=== PATIENT | female | born 2000 | race Caucasian/White ===

== ENCOUNTER 2024-02-28 14:44 | Inpatient (IN) ==
--- NOTE | 2024-02-28 15:24 | History & Physical Report ---
Date of Service February 28, 2024 Assessment & Plan (1) Normal labor and delivery: Plan: G1 at 38w5d with GDM with GBS+ve status came in Active Phase of labor. Issues: 1. GBS +ve: needs PCN in Labor 2. GDM: Diet Controlled FHT: Category 1 Tracing Contractions: Adequate Menses Irregular: POG as per 8+5 WOG 38+2 WOG BG: A+ve Plan: Spontaneous progress of labor Talked about Epidural; She opts for this (2) Gestational diabetes mellitus (GDM) affecting , antepartum: Plan: Diet Controlled GRBS as per protocol History of Present Illness Chief Complaint: G1 at 38w5d with GDM with GBS+ve status here for labor check Primary Care Provider: [facility] 24 yrs G1 at 38w5d with GDM with GBS+ve status here for labor check. Contraction started at 9 am this morning Issues: 1. GBS +ve: needs PCN in Labor 2. GDM: Diet Controlled Menses Irregular: POG as per 8+5 WOG 38+2 WOG BG: A+ve Recent USG(02/18): EFW 85%( Both parent were Large babies at ) Initially planned for IOL after 39 weeks Came in labor; Contraction frequency: Vitals: BP 150/72 mmHg----- repeat BP 115/78 Talked about Epidural Allergies Allergy/AdvReac Type Severity Reaction Status Date / Time No Known Allergies Allergy Verified 02/28/24 15:00 Home Medications Medication Instructions Recorded Confirmed Type 21-iron fu-folic acid 1 tab PO DAILY 07/24/23 02/28/24 History [ Complete] acetone (urine) test (Ketone Urine #50 ea 01/08/24 02/26/24 Rx Test strips) blood sugar diagnostic (OneTouch #150 ea 01/08/24 02/26/24 Rx Verio test strips) blood-glucose meter (OneTouch #1 ea 01/08/24 02/26/24 Rx Verio Reflect Meter) lancets 33 gauge (OneTouch Delica #150 ea 01/08/24 02/26/24 Rx Plus Lancet) ferrous sulfate 325 mg (65 mg 325 mg PO DAILY 02/28/24 02/28/24 History iron) tablet (iron) Patient History Medical History (Updated 02/28/24 @ 15:51 by Karen Artis MD) GBS carrier Gestational diabetes mellitus diet controlled Varicella vaccination Surgical History S/P wisdom tooth extraction Family History Grandmother (Maternal) Breast cancer Grandfather (Paternal) Colorectal cancer Father Hypertension Thyroid disease Denies family history of Ovarian cancer Social History Smoking Status: Never smoker Do You Dip or Chew Tobacco: No; Hx Alcohol Use: No Hx Substance Use: No Preferred Language: Ken[place] Self Storage Manager Required: No Beliefs That Will Affect Care: None marital status: marital status details: Basilio Venegas (26) [phone] Current Living Situation: Spouse Current Living Situation Comment: lives with spouse, no pets current occupational status: employed 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 Denies SOB, difficulty breathing, chest pain, palpitations, and chest pressure. Denies breast pain. Denies dysuria. Denies headache or changes in vision. Physical Exam Physical Exam: General: Alert and oriented. No acute distress CV: Regular rate and rhythm. No murmurs. Respiratory: CTA bilaterally. No rhonchi, wheezes, or crackles. No increased work of breathing. Abdomen: Gravid term size Uterus, Longitudinal Lie, Cephalic, Contraction + Pelvic: Dilated 8 cm; Effacement 100; Station [address] Gr Lower extremities: No LE edema. No deep calf pain. Results & Data Vital Signs (Past 12 Hours) Vital Signs Temp Pulse Resp BP Pulse Ox 02/28/24 15:14 80 100 02/28/24 15:13 75 150/72 H 02/28/24 15:09 89 99 02/28/24 14:58 90 150/79 H 02/28/24 14:58 37.0 C 18
[2024-02-28] MEDS ORDERED: LIDOCAINE 1% LOCAL 20 ML VIAL INFIL PRN (15:50)
[2024-02-28] MEDS ORDERED: OXYTOCIN 30 UNITS/NSS 30 UNITS/500 ML BAG IV PRN (15:50)
--- NOTE | 2024-02-28 15:53 | Labor Progress Brief Note ---
Date of Service February 28, 2024 Subjective at 38w5d with contractions Q4-7, no ROM/VB, good FM. GDM, GBS+. Assessment & Plan (1) Normal labor and delivery: Physical Exam Genitourinary: 8/100/0 FHT Cat 1 pattern BUT at times baseline as low as 100. This has been a previously seen issue with this fetus on office NST's. +accel with exam and variability always moderate. [place] Q7 Results & Data Vital Signs (Past 12 Hours) Vital Signs Temp Pulse Resp BP Pulse Ox 02/28/24 15:50 98 H 86 L 02/28/24 15:49 94 H 100 02/28/24 15:44 100 02/28/24 15:44 77 02/28/24 15:44 69 115/78 02/28/24 15:39 92 H 100 02/28/24 15:34 99 02/28/24 15:34 79 02/28/24 15:34 77 93 02/28/24 15:29 100 02/28/24 15:29 85 02/28/24 15:29 74 154/73 H 02/28/24 15:24 83 98 02/28/24 15:19 85 99 02/28/24 15:14 80 100 02/28/24 15:13 75 150/72 H 02/28/24 15:09 89 99 02/28/24 14:58 90 150/79 H 02/28/24 14:58 98.6 F 18 Coding Level of Care Code None Diagnoses Normal labor and delivery O80
[2024-02-28] MEDS: LACTATED RINGER'S 1,000 ML IV PRN (15:55)
[2024-02-28 16:10] LABS: Hematocrit (blood only) 35.4 % (37.0-47.0); Hemoglobin 11.8 g/dl (12.0-16.0); Mean Corpuscular Hemoglobin 28.9 pg (25.0-34.0); Mean Corpuscular Hgb Conc 33.3 g/dL (32.0-36.0); Mean Corpuscular Volume 86.8 fL (80.0-100.0); Mean Platelet Volume 9.6 fL (9.4-12.4); Platelet Count 197 K/uL (130-400); RDW Coefficient of Variation 13.4 % (11.5-14.5); RDW Standard Deviation 42.1 fL (36.4-46.3); Red Blood Count 4.08 M/uL (4.20-5.40); White Blood Count 12.57 K/ul (4.8-10.8)
[2024-02-28] MEDS ORDERED: fentaNYL citrate PF 100 MCG/2 ML VIAL EPI PRN (16:11)
[2024-02-28] MEDS ORDERED: BUPIVACAINE 0.25% PF 30 ML VIAL EPI PRN (16:11)
[2024-02-28] MEDS ORDERED: SODIUM CHLORIDE 0.9% PF INJ 10 ML VIAL EPI PRN (16:11)
[2024-02-28] MEDS ORDERED: ONDANSETRON INJ 2 MG/ML 2 ML VIAL IV PRN (16:11)
[2024-02-28] MEDS ORDERED: NALOXONE HCL 1 MG in SODIUM CHLORIDE 0.9% 1,000 ML IV PRN (16:11)
[2024-02-28] MEDS ORDERED: NALOXONE HCL 0.4 MG/1 ML VIAL/CARP IV PRN (16:11)
[2024-02-28] MEDS ORDERED: diphenhydrAMINE 50 MG/ML VIAL IV PRN (16:11)
[2024-02-28] MEDS ORDERED: LIDOCAINE 2% MPF LOCAL 5 ML VIAL EPI PRN (16:11)
[2024-02-28] MEDS ORDERED: ROPIVACAINE 0.5% PF 5 MG/ML 20 ML VIAL EPI PRN (16:11)
[2024-02-28] MEDS ORDERED: NALBUPHINE HCL 5 MG in SYRINGE 0 ML IV PRN (16:11)
[2024-02-28] MEDS ORDERED: ePHEDrine sulfate 50 MG/ML AMP IV PRN (16:11)
--- NOTE | 2024-02-28 16:13 | Anesthesiology Consultation ---
Date of Service February 28, 2024 Assessment & Plan (1) Encounter for pre-operative examination: Chart Review Chart Review: Acceptable Risk for Surgery and Patient NOT seen in Pre Admission Testing Consults Requested none History Height/Weight Height: 5 ft 3 in Weight: 61.235 kg Allergies Allergy/AdvReac Type Severity Reaction Status Date / Time No Known Allergies Allergy Verified 02/28/24 15:00 Medications Home Medications Medication Instructions Recorded Confirmed Last Taken 21-iron fu-folic acid 1 tab PO DAILY 07/24/23 02/28/24 02/28/24 [ Complete] acetone (urine) test (Ketone Urine #50 01/08/24 02/26/24 Unknown Test strips) blood sugar diagnostic (OneTouch #150 01/08/24 02/26/24 Unknown Verio test strips) blood-glucose meter (OneTouch #1 01/08/24 02/26/24 Unknown Verio Reflect Meter) lancets 33 gauge (OneTouch Delica #150 01/08/24 02/26/24 Unknown Plus Lancet) ferrous sulfate 325 mg (65 mg 325 mg PO DAILY 02/28/24 02/28/24 02/28/24 iron) tablet (iron) Active Medications Generic Name Dose Route Start Last Admin Trade Name Freq PRN Reason Stop Dose Admin Penicillin G Potassium 6 mu/ 262 mls @ 262 mls/hr 02/28/24 16:15 02/28/24 16:20 Dextrose IV 02/28/24 17:14 262 mls/hr ONE ONE Administration Past Medical History Medical History (Updated 02/28/24 @ 16:13 by Rob Dunaway MD) Encounter for pre-operative examination GBS carrier Gestational diabetes mellitus diet controlled Varicella vaccination Exercise / Class Metabolic Activity II 4-5 Yardwork/Stairs/Walk up hill Past Family History Family History Grandmother (Maternal) Breast cancer Grandfather (Paternal) Colorectal cancer Father Hypertension Thyroid disease Denies family history of Ovarian cancer Past Surgical History Surgical History S/P wisdom tooth extraction Social History Smoking Status: Never smoker Do You Dip or Chew Tobacco: No Hx Alcohol Use: No Hx Substance Use: No substance use type: does not use Physical Exam Vital Signs Last Vital Signs Temp 37.0 C 02/28/24 14:58 Pulse 87 02/28/24 16:29 Resp 18 02/28/24 14:58 BP 115/78 02/28/24 15:44 Pulse Ox 100 02/28/24 16:29 Testing Laboratory Results 02/28/24 15:54 02/28/24 15:54
[2024-02-28] MEDS: PENICILLIN GK 6 MU in DEXTROSE 5% 250 ML IV ONE (16:20)
[2024-02-28 16:29] LABS: Alanine Aminotransferase 14 U/L (7-52); Albumin Globulin Ratio 1.3 (0.9-2); Albumin Level 3.9 gm/dl (3.4-5.0); Alkaline Phosphatase 206 U/L (34-104); Anion Gap 9 (3-11); Aspartate Aminotransferase 20 U/L (13-39); BUN Creatinine Ratio 21.2 (10-20); Bilirubin Direct 0.1 mg/dl (0-0.2); Bilirubin,Total 0.5 mg/dl (0.2-1.0); Blood Urea Nitrogen 11 mg/dl (6-23); Calcium 9.6 mg/dl (8.6-10.3); Carbon Dioxide 21 mmol/L (21-32); Chloride 105 mmol/L (98-107); Est GFR (African American) > 150.0 ml/min; Est GFR (Non-African American) 133.7 ml/min; Glucose 82 mg/dl (70-99(Fasting)); Potassium 3.4 mmol/L (3.5-5.1); Sodium 135 mmol/L (136-145); Total Protein 6.9 gm/dl (6.0-8.3)
[2024-02-28] MEDS: BUPIVACAINE 0.25% PF 30 ML VIAL ONE (16:31)
[2024-02-28] MEDS: LIDOCAINE 2%/EPINEPHRINE 1:200,000 20 ML PF ONE (16:31)
[2024-02-28] MEDS: fentANYL 2 MCG/ML BUPIVacaine 0.125%-NSS 100ML BAG ONE (16:33)
[2024-02-28] MEDS: BUPIVACAINE 0.25% PF 30 ML VIAL EPI STA (16:35)
[2024-02-28] MEDS: fentaNYL citrate PF 100 MCG/2 ML VIAL EPI STA (16:36)
[2024-02-28] MEDS: LIDOCAINE 2%/EPINEPHRINE 1:200,000 20 ML PF EPI STA (16:36)
[2024-02-28] MEDS: fentaNYL citrate PF 100 MCG/2 ML VIAL ONE (16:36)
[2024-02-28] MEDS: SODIUM CHLORIDE 0.9% PF INJ 10 ML VIAL ONE (16:36)
[2024-02-28] MEDS: SODIUM CHLORIDE 0.9% PF INJ 10 ML VIAL EPI STA (16:36)
[2024-02-28] MEDS: ePHEDrine sulfate 50 MG/ML AMP ONE (18:52)
[2024-02-28] MEDS: PENICILLIN GK 3 MU in DEXTROSE 5% 100 ML IV PRN (19:51)
--- NOTE | 2024-02-28 22:15 | Labor Progress Brief Note ---
Date of Service February 28, 2024 Subjective Patient became comfortable with epidural, then began feeling pressure and was found to be complete per RN exam. Began pushing. I assessed her within the first few pushes and found her complete, +1 and pushing effectively with clear amniotic fluid. Note that patient's HR baseline has been low, ~100, throughout this admission. Variability is always reassuring. Prior to second stage, spontaneous accels frequently seen. During second stage, fewer accels but tracing remains reassuring with moderate variability, despite the same low baseline of 100-110. Due to this baseline I have been present on L&D watching her tracing closely. Patient and FOB are aware that her baseline is lower than is typical, but that the overall pattern has had reassuring features, and that this baby's baseline has been consistent. Thus far I feel it is difficult to recommend changing mode of delivery due solely to the tracing, as the likelihood remains given the pattern this fetus is well oxygenated. When several contractions go by without an accel, I have had the patient lie on her side and breathe through a contraction to allow uninterrupted monitoring, and spontaneous accelerations are seen. We most recently did this and saw an accel less than ten minutes ago. Second stage continues with close monitoring of a fetus with known low baseline but reassuring variability and good progress towards delivery. Assessment & Plan Admission and Anticipated Discharge Date Admission Date: February 28, 2024 Results & Data Vital Signs (Past 12 Hours) Vital Signs Temp Pulse Resp BP Pulse Ox 02/28/24 22:05 62 108/56 L 02/28/24 22:04 68 98 02/28/24 21:59 131 H 96 02/28/24 21:54 97 H 98 02/28/24 21:51 93 H 120/71 02/28/24 21:49 84 99 02/28/24 21:44 111 H 100 02/28/24 21:39 76 99 02/28/24 21:35 78 130/76 02/28/24 21:34 75 99 02/28/24 21:29 72 100 02/28/24 21:24 78 100 02/28/24 21:20 75 140/83 02/28/24 21:19 83 99 02/28/24 21:14 75 99 02/28/24 21:09 81 99 02/28/24 21:05 88 144/91 H 02/28/24 21:04 85 100 02/28/24 21:00 18 02/28/24 21:00 98.6 F 18 02/28/24 20:59 76 99 02/28/24 20:54 70 100 02/28/24 20:50 64 125/67 02/28/24 20:49 70 99 02/28/24 20:44 64 100 02/28/24 20:39 69 100 02/28/24 20:35 63 120/57 L 02/28/24 20:34 63 100 02/28/24 20:29 76 100 02/28/24 20:24 73 100 02/28/24 20:20 68 134/76 02/28/24 20:19 66 99 02/28/24 20:14 66 98 02/28/24 20:09 61 99 02/28/24 20:07 68 119/69 02/28/24 20:04 66 98 02/28/24 19:59 63 99 02/28/24 19:54 69 99 02/28/24 19:50 69 118/70 02/28/24 19:49 71 99 02/28/24 19:44 77 98 02/28/24 19:39 80 99 02/28/24 19:36 67 116/68 02/28/24 19:34 64 99 02/28/24 19:30 98.2 F 02/28/24 19:29 70 98 02/28/24 19:24 68 99 02/28/24 19:22 65 121/70 02/28/24 19:19 62 99 02/28/24 19:14 69 99 02/28/24 19:09 73 99 02/28/24 19:05 63 123/72 02/28/24 19:04 70 99 02/28/24 18:59 71 99 02/28/24 18:54 71 99 02/28/24 18:51 66 122/72 02/28/24 18:49 69 99 02/28/24 18:44 70 98 02/28/24 18:39 60 99 02/28/24 18:35 81 128/75 02/28/24 18:34 63 99 02/28/24 18:30 20 02/28/24 18:30 20 02/28/24 18:29 64 98 02/28/24 18:24 72 98 02/28/24 18:20 67 114/63 02/28/24 18:19 71 97 02/28/24 18:14 68 99 02/28/24 18:09 63 99 02/28/24 18:07 68 112/66 02/28/24 18:04 64 99 02/28/24 18:00 20 02/28/24 18:00 20 02/28/24 17:59 61 97 02/28/24 17:54 62 98 02/28/24 17:52 63 116/71 02/28/24 17:49 77 98 02/28/24 17:45 18 02/28/24 17:44 80 99 02/28/24 17:39 66 99 02/28/24 17:35 73 111/71 02/28/24 17:34 72 99 02/28/24 17:33 64 111/71 02/28/24 17:31 65 111/70 02/28/24 17:30 20 02/28/24 17:29 99 02/28/24 17:29 62 02/28/24 17:29 61 121/69 02/28/24 17:27 69 113/67 02/28/24 17:25 61 113/69 02/28/24 17:24 60 99 02/28/24 17:23 76 118/71 02/28/24 17:21 70 117/75 02/28/24 17:19 99 02/28/24 17:19 75 02/28/24 17:19 60 113/66 02/28/24 17:17 78 117/69 02/28/24 17:16 18 02/28/24 17:15 65 116/67 02/28/24 17:14 65 99 02/28/24 17:13 59 L 111/65 02/28/24 17:11 62 119/68 02/28/24 17:09 99 02/28/24 17:09 54 L 02/28/24 17:09 55 L 113/66 02/28/24 17:07 57 L 122/68 02/28/24 17:05 60 119/65 02/28/24 17:04 58 L 100 02/28/24 17:03 57 L 120/66 02/28/24 17:01 60 115/66 02/28/24 17:00 18 02/28/24 16:59 100 02/28/24 16:59 68 02/28/24 16:59 67 111/66 02/28/24 16:57 66 109/63 02/28/24 16:55 58 L 116/65 02/28/24 16:54 68 100 02/28/24 16:53 60 120/66 02/28/24 16:51 62 112/62 02/28/24 16:49 100 02/28/24 16:49 73 02/28/24 16:49 65 117/62 02/28/24 16:47 63 124/68 02/28/24 16:45 18 02/28/24 16:45 72 117/63 02/28/24 16:44 67 100 02/28/24 16:43 55 L 125/65 02/28/24 16:41 63 116/68 02/28/24 16:39 68 118/69 100 02/28/24 16:37 73 118/71 02/28/24 16:35 61 123/71 02/28/24 16:34 68 100 02/28/24 16:33 64 121/71 02/28/24 16:30 20 02/28/24 16:30 73 114/64 02/28/24 16:29 87 100 02/28/24 16:24 87 100 02/28/24 16:19 95 H 100 02/28/24 16:14 76 100 02/28/24 16:09 77 100 02/28/24 16:04 88 100 02/28/24 15:59 100 H 100 02/28/24 15:54 92 H 100 02/28/24 15:50 98 H 86 L 02/28/24 15:49 94 H 100 02/28/24 15:44 100 02/28/24 15:44 77 02/28/24 15:44 69 115/78 02/28/24 15:39 92 H 100 02/28/24 15:34 99 02/28/24 15:34 79 02/28/24 15:34 77 93 02/28/24 15:29 100 02/28/24 15:29 85 02/28/24 15:29 74 154/73 H 02/28/24 15:24 83 98 02/28/24 15:19 85 99 02/28/24 15:14 80 100 02/28/24 15:13 75 150/72 H 02/28/24 15:09 89 99 02/28/24 14:58 90 150/79 H 02/28/24 14:58 98.6 F 18 Coding Level of Care Code None
[2024-02-28] MEDS: fentANYL 2 MCG/ML BUPIVacaine 0.125%-NSS 100ML BAG EPI PRN (22:36)
--- NOTE | 2024-02-28 22:57 | Communication Note ---
Date of Service: February 28, 2024 Patient stopped pushing while I delivered another baby on the unit. During rest, the heart tones demonstrated moderate variability, accelerations, and baseline 100-110. Given lack of strong urge to push, will rest and labor down a while. Close monitoring continues.
--- NOTE | 2024-02-29 01:56 | Labor Progress Brief Note ---
Date of Service February 29, 2024 Subjective Patient resumed pushing. I was notified to come to the room after she had pushed for over 1.5 hours, and the crown was at the labia but not moving further. FHT had continued to be baseline 100 with moderate variability, accels at times. I arrived promptly at the patient's room and assessed her. There was +accel with scalp stim. Molding present, excellent maternal effort, but not significant descent. Patient was asked which pushing position she felt had been most effective, and she noted she thought knee-chest was best for her. I assessed while she pushed in that position and was able to feel her effort but not further descent. Review of ultrasounds during confirms there have been, at times, AC and EFW measurements in the upper ranges of normal, though most recent scan was in 60s %lyn. AC notably has been higher than EFW on two most recent scans. Counseled patient on options: Continue pushing, consider operative vaginal delivery, or move to . Risks of operative delivery not acceptable to patient with explanation of AC > EFW and GDM increasing risks of dystocia. Prefers moving to . Second surgeon called and STAT decided. Consent completed and patient moved to OR to begin process with RN as first coat sander. All questions answered of FOB and patient at the bedside. Assessment & Plan Admission and Anticipated Discharge Date Admission Date: February 28, 2024 Results & Data Vital Signs (Past 12 Hours) Vital Signs Temp Pulse Resp BP Pulse Ox 02/29/24 01:50 111 H 126/70 02/29/24 01:49 102 H 100 02/29/24 01:44 147 H 100 02/29/24 01:39 94 H 100 02/29/24 01:35 77 129/73 02/29/24 01:34 72 100 02/29/24 01:29 101 H 100 02/29/24 01:27 106 H 87 L 02/29/24 01:24 72 100 02/29/24 01:20 94 H 129/61 02/29/24 01:19 77 100 02/29/24 01:14 76 100 02/29/24 01:09 64 100 02/29/24 01:06 114 H 127/66 02/29/24 01:04 76 100 02/29/24 01:00 18 02/29/24 01:00 98.6 F 18 02/29/24 00:59 69 100 02/29/24 00:54 131 H 100 02/29/24 00:50 69 127/73 02/29/24 00:49 123 H 100 02/29/24 00:44 97 H 100 02/29/24 00:39 71 100 02/29/24 00:35 66 129/70 02/29/24 00:34 71 99 02/29/24 00:29 132 H 100 02/29/24 00:24 150 H 100 02/29/24 00:19 139 H 100 02/29/24 00:14 79 100 02/29/24 00:09 115 H 100 02/29/24 00:04 113 H 100 02/28/24 23:59 73 100 02/28/24 23:54 132 H 100 02/28/24 23:51 113 H 140/65 02/28/24 23:49 100 H 100 02/28/24 23:44 105 H 100 02/28/24 23:39 85 100 02/28/24 23:36 64 117/62 02/28/24 23:34 57 L 100 02/28/24 23:29 65 100 02/28/24 23:24 66 100 02/28/24 23:21 60 115/61 02/28/24 23:19 70 100 02/28/24 23:14 65 100 02/28/24 23:09 69 100 02/28/24 23:06 63 105/58 L 02/28/24 23:04 59 L 100 02/28/24 23:00 18 02/28/24 23:00 98.8 F 18 02/28/24 22:59 61 100 02/28/24 22:54 59 L 100 02/28/24 22:51 61 106/53 L 02/28/24 22:49 65 100 02/28/24 22:44 60 100 02/28/24 22:39 69 100 02/28/24 22:37 71 133/60 02/28/24 22:34 66 100 02/28/24 22:29 70 100 02/28/24 22:24 96 H 99 02/28/24 22:20 60 119/59 L 02/28/24 22:19 61 100 02/28/24 22:14 121 H 100 02/28/24 22:09 66 98 02/28/24 22:05 62 108/56 L 02/28/24 22:04 68 98 02/28/24 21:59 131 H 96 02/28/24 21:54 97 H 98 02/28/24 21:51 93 H 120/71 02/28/24 21:49 84 99 02/28/24 21:44 111 H 100 02/28/24 21:39 76 99 02/28/24 21:35 78 130/76 02/28/24 21:34 75 99 02/28/24 21:29 72 100 02/28/24 21:24 78 100 02/28/24 21:20 75 140/83 02/28/24 21:19 83 99 02/28/24 21:14 75 99 02/28/24 21:09 81 99 02/28/24 21:05 88 144/91 H 02/28/24 21:04 85 100 02/28/24 21:00 18 02/28/24 21:00 98.6 F 18 02/28/24 20:59 76 99 02/28/24 20:54 70 100 02/28/24 20:50 64 125/67 02/28/24 20:49 70 99 02/28/24 20:44 64 100 02/28/24 20:39 69 100 02/28/24 20:35 63 120/57 L 02/28/24 20:34 63 100 02/28/24 20:29 76 100 02/28/24 20:24 73 100 02/28/24 20:20 68 134/76 02/28/24 20:19 66 99 02/28/24 20:14 66 98 02/28/24 20:09 61 99 02/28/24 20:07 68 119/69 02/28/24 20:04 66 98 02/28/24 19:59 63 99 02/28/24 19:54 69 99 02/28/24 19:50 69 118/70 02/28/24 19:49 71 99 02/28/24 19:44 77 98 02/28/24 19:39 80 99 02/28/24 19:36 67 116/68 02/28/24 19:34 64 99 02/28/24 19:30 98.2 F 02/28/24 19:29 70 98 02/28/24 19:24 68 99 02/28/24 19:22 65 121/70 02/28/24 19:19 62 99 02/28/24 19:14 69 99 02/28/24 19:09 73 99 02/28/24 19:05 63 123/72 02/28/24 19:04 70 99 02/28/24 18:59 71 99 02/28/24 18:54 71 99 02/28/24 18:51 66 122/72 02/28/24 18:49 69 99 02/28/24 18:44 70 98 02/28/24 18:39 60 99 02/28/24 18:35 81 128/75 02/28/24 18:34 63 99 02/28/24 18:30 20 02/28/24 18:30 20 02/28/24 18:29 64 98 02/28/24 18:24 72 98 02/28/24 18:20 67 114/63 02/28/24 18:19 71 97 02/28/24 18:14 68 99 02/28/24 18:09 63 99 02/28/24 18:07 68 112/66 02/28/24 18:04 64 99 02/28/24 18:00 20 02/28/24 18:00 20 02/28/24 17:59 61 97 02/28/24 17:54 62 98 02/28/24 17:52 63 116/71 02/28/24 17:49 77 98 02/28/24 17:45 18 02/28/24 17:44 80 99 02/28/24 17:39 66 99 02/28/24 17:35 73 111/71 02/28/24 17:34 72 99 02/28/24 17:33 64 111/71 02/28/24 17:31 65 111/70 02/28/24 17:30 20 02/28/24 17:29 99 02/28/24 17:29 62 02/28/24 17:29 61 121/69 02/28/24 17:27 69 113/67 02/28/24 17:25 61 113/69 02/28/24 17:24 60 99 02/28/24 17:23 76 118/71 02/28/24 17:21 70 117/75 02/28/24 17:19 99 02/28/24 17:19 75 02/28/24 17:19 60 113/66 02/28/24 17:17 78 117/69 02/28/24 17:16 18 02/28/24 17:15 65 116/67 02/28/24 17:14 65 99 02/28/24 17:13 59 L 111/65 02/28/24 17:11 62 119/68 02/28/24 17:09 99 02/28/24 17:09 54 L 02/28/24 17:09 55 L 113/66 02/28/24 17:07 57 L 122/68 02/28/24 17:05 60 119/65 02/28/24 17:04 58 L 100 02/28/24 17:03 57 L 120/66 02/28/24 17:01 60 115/66 02/28/24 17:00 18 02/28/24 16:59 100 02/28/24 16:59 68 02/28/24 16:59 67 111/66 02/28/24 16:57 66 109/63 02/28/24 16:55 58 L 116/65 02/28/24 16:54 68 100 02/28/24 16:53 60 120/66 02/28/24 16:51 62 112/62 02/28/24 16:49 100 02/28/24 16:49 73 02/28/24 16:49 65 117/62 02/28/24 16:47 63 124/68 02/28/24 16:45 18 02/28/24 16:45 72 117/63 02/28/24 16:44 67 100 02/28/24 16:43 55 L 125/65 02/28/24 16:41 63 116/68 02/28/24 16:39 68 118/69 100 02/28/24 16:37 73 118/71 02/28/24 16:35 61 123/71 02/28/24 16:34 68 100 02/28/24 16:33 64 121/71 02/28/24 16:30 20 02/28/24 16:30 73 114/64 02/28/24 16:29 87 100 02/28/24 16:24 87 100 02/28/24 16:19 95 H 100 02/28/24 16:14 76 100 02/28/24 16:09 77 100 02/28/24 16:04 88 100 02/28/24 15:59 100 H 100 02/28/24 15:54 92 H 100 02/28/24 15:50 98 H 86 L 02/28/24 15:49 94 H 100 02/28/24 15:44 100 02/28/24 15:44 77 02/28/24 15:44 69 115/78 02/28/24 15:39 92 H 100 02/28/24 15:34 99 02/28/24 15:34 79 02/28/24 15:34 77 93 02/28/24 15:29 100 02/28/24 15:29 85 02/28/24 15:29 74 154/73 H 02/28/24 15:24 83 98 02/28/24 15:19 85 99 02/28/24 15:14 80 100 02/28/24 15:13 75 150/72 H 02/28/24 15:09 89 99 02/28/24 14:58 90 150/79 H 02/28/24 14:58 98.6 F 18 Coding Level of Care Code None
[2024-02-29] MEDS ORDERED: ACETAMINOPHEN 500 MG TAB PO SCH (02:00)
[2024-02-29] MEDS ORDERED: ceFAZolin 2000MG 2,000 MG/15 ML SYR IV SCH (02:00)
[2024-02-29] MEDS ORDERED: KETAMINE HCL 10MG/ML SYR ONE (02:14)
[2024-02-29] MEDS ORDERED: MIDAZOLAM HCL 1 MG/ML 2ML VIAL ONE (02:18)
[2024-02-29] MEDS ORDERED: MoRPHine SULFATE PF 1 MG/ML 10 ML AMP/VIAL ONE (02:21)
[2024-02-29] MEDS ORDERED: ePHEDrine sulfate 50 MG/ML AMP IV PRN (02:24)
[2024-02-29] MEDS ORDERED: NALOXONE HCL 0.08 MG in SYRINGE 1.8 ML IV PRN (02:24)
[2024-02-29] MEDS ORDERED: diphenhydrAMINE 50 MG/ML VIAL IV PRN ×2 (02:24→20:25)
[2024-02-29] MEDS ORDERED: PROMETHAZINE 6.25 MG/50.25 ML BAG IV PRN (02:24)
[2024-02-29] MEDS ORDERED: NALBUPHINE HCL 5 MG in SYRINGE 0 ML IV PRN (02:24)
[2024-02-29] MEDS ORDERED: NALOXONE HCL 1 MG in SODIUM CHLORIDE 0.9% 1,000 ML IV PRN (02:24)
[2024-02-29] MEDS ORDERED: MoRPHine SULFATE PF 1 MG/ML 10 ML AMP/VIAL EPI ONE (02:24)
[2024-02-29] MEDS ORDERED: ONDANSETRON INJ 2 MG/ML 2 ML VIAL IV PRN ×2 (02:24→20:25)
[2024-02-29] MEDS ORDERED: KETOROLAC 30 MG/ML VIAL IV PRN (02:24)
[2024-02-29] MEDS ORDERED: LACTATED RINGER'S 500 ML IV PRN (02:24)
[2024-02-29] MEDS ORDERED: NALOXONE HCL 0.4 MG/1 ML VIAL/CARP IV PRN (02:24)
[2024-02-29] MEDS ORDERED: NO NARCOTICS OR SEDATIVES SCH (02:30)
[2024-02-29] MEDS ORDERED: DC INTRASPINAL MORPHINE SCH (02:30)
[2024-02-29] MEDS ORDERED: SODIUM CHLORIDE 0.9% 1,000 ML IV SCH (02:30)
[2024-02-29] MEDS ORDERED: LIDOCAINE 2%/EPINEPHRINE 1:200,000 20 ML PF ONE (02:44)
[2024-02-29] MEDS ORDERED: PHENYLEPHRINE 100MCG/ML 10ML SYR IV ONE (02:44)
[2024-02-29] MEDS ORDERED: ONDANSETRON INJ 2 MG/ML 2 ML VIAL ONE (02:44)
[2024-02-29] MEDS ORDERED: OXYTOCIN 10 UNITS/ML VIAL ONE (02:44)
[2024-02-29] MEDS ORDERED: KETOROLAC 30 MG/ML VIAL ONE (02:44)
[2024-02-29] MEDS ORDERED: ePHEDrine sulfate 50 MG/5 ML SYR ONE (02:44)
[2024-02-29] MEDS ORDERED: DEXAMETHASONE SOD INJ 4 MG/ML VIAL ONE (02:44)
[2024-02-29 02:54] LABS: Base Excess Cord Arterial Bld -6.8 mEq/L (-9-1.8); CO2 Cord Arterial Blood 52 mmHg (39.1-73.5); HCO3 Cord Arterial Blood 21 mmol/L (19.7-28.5); Oxygen Sat Cord Arterial Blood < 60.0 % (<60); PO2 Cord Arterial Blood < 20 mmHg (4.1-31.7); pH Cord Arterial Blood 7.22 (7.1-7.38)
[2024-02-29] MEDS ORDERED: LACTATED RINGER'S 1,000 ML IV SCH ×2 (03:00→03:15)
--- NOTE | 2024-02-29 03:04 | Operative Report ---
Post Operative Report Pre & Post Diagnosis Operation Date: 02/29/24 02:00 [facility] @ 38w6d Labor Failure to Descend in Second Stage Low Heart Rate Baseline I identified the patient and participated in the time-out.: Yes Procedure Operation Date: 02/29/24 02:00 Primary Low Transverse Section Surgeon Ksenia Gr MD Consultant Technology Martha BRITO, Celestine SALAMANCA Quantitative Blood Loss (QBL) EBL 800, QBL pending calc Findings Consistent with Post-Op Diagnosis Specimens Placenta, cord blood, cord gas Anesthesia Type L&D Only Epidural Exists Complications none Disposition Accompanied Patient To Recovery: Yes Disposition: L&D Description of Procedure The patient was placed operating table in the supine position with a leftward tilt. She was prepped and draped in standard sterile fashion. I personally placed her nonlatex bliss during the prep process. The anesthetic was tested and found to be adequate. A time-out was held, identifying correct patient, procedure, positioning and preoperative antibiotics. There were no concerns. A Pfannenstiel skin incision was made with a knife and taken down to the underlying layer of fascia. The fascia was incised in the midline with the knife and taken out laterally with scissors. The superior edge of the fascial incision was grasped, elevated and dissected off the underlying rectus both superiorly and inferiorly. The muscles were bluntly in the midline. The peritoneum was entered bluntly. The incision was then stretched. The bladder retractor was placed. The vesicouterine peritoneum was identified, entered with scissors and taken out laterally with scissors. The bladder flap was created digitally. A hysterotomy incision was created transversely in the lower uterine segment, final entry being accomplished in a blunt manner with the turner machine operator's fingers. Clear amniotic fluid was encountered. The turner machine operator's hand was used to elevate the head to the hysterotomy, with an certified ophthalmic surgical assistant providing elevation from below. As soon as the head was elevated, the immediately curled its body which resulted in a change of position to Breech. The buttocks and hips delivered through the incision, followed by body, shoulders/arms, and head with the neck maintained in flexion. The cord was clamped and cut and the infant was then handed off to the awaiting materials planner. Cord blood was obtained and a segment of the remaining cord was isolated for cord gas collection. The placenta was Manually extracted. The uterus was exteriorized and cleared of all clot and debris with moistened laparotomy sponges. The hysterotomy and a L inferior extension of the incision was repaired as a continuous closure line, in two layers, the first in a running locked layer, the second in an imbricating layer. The ovaries and tubes were seen to be normal bilaterally. The uterus wa s gently replaced in the abdomen, and the gutters were cleared of clot and debris. A final inspection of the hysterotomy revealed good hemostasis except for one spot near the R angle. This was addressed with a vicryl [id number] and achieved complete hemostasis. The rectus muscles were allowed to reapproximate naturally. The fascia was then reapproximated with 1 Vicryl in a running nonlocked manner. The fascia was examined and found to be free of defect following closure. The subcutaneous tissue was copiously irrigated and reapproximated with 0-chromic, then the skin edges were closed with 4-0 monocryl in a subcuticular fashion. A dermabond dressing was applied. The bliss was found to be draining red stained urine at completion of the procedure. The urine in the tubing was more clear than the urine in the collection bag, supporting that hematuria was due to the low station and second stage of labor rather than an intraoperative event. I attest to the content of the Intraoperative Record and any orders documented therein. Any exceptions are noted below. I attest to the content of the Intraoperative Record and any orders documented therein. Any exceptions are noted below. OB Procedure Charges 10536
--- NOTE | 2024-02-29 03:08 | Anesthesia Procedure Note ---
Date of Service February 29, 2024 Anesthesia Post Epidural Note Vital Signs Vital Signs: Temp Pulse Resp BP Pulse Ox 37.0 C 91 H 18 112/63 100 02/29/24 01:00 02/29/24 03:05 02/29/24 01:00 02/29/24 03:00 02/29/24 03:05 Notes Mental Status: alert / awake / arousable and participated in evaluation Patient Amnestic to Procedure: No Nausea / Vomiting: adequately controlled Pain: adequately controlled Airway Patency, RR, SpO2: stable & adequate BP & HR: stable & adequate Hydration State: stable & adequate Neuraxial Anesthesia: was administered and sensory block is resolving Anesthetic Complications: no major complications apparent and Pt Satisfied with anesthetic care Epidural: Removed without complications and With tip intact
--- NOTE | 2024-02-29 03:08 | Anesthesiology Progress Note ---
Date of Service February 29, 2024 Anesthesia Post Procedure Vital Signs Vital Signs: Temp Pulse Resp BP Pulse Ox 02/29/24 03:05 91 H 100 02/29/24 03:00 99 H 112/63 100 02/29/24 01:54 94 H 100 02/29/24 01:50 111 H 126/70 02/29/24 01:49 102 H 100 02/29/24 01:44 147 H 100 02/29/24 01:39 94 H 100 02/29/24 01:35 77 129/73 02/29/24 01:34 72 100 02/29/24 01:29 101 H 100 02/29/24 01:27 106 H 87 L 02/29/24 01:24 72 100 02/29/24 01:20 94 H 129/61 02/29/24 01:19 77 100 02/29/24 01:14 76 100 02/29/24 01:09 64 100 02/29/24 01:06 114 H 127/66 02/29/24 01:04 76 100 02/29/24 01:00 18 02/29/24 01:00 37.0 C 18 02/29/24 00:59 69 100 02/29/24 00:54 131 H 100 02/29/24 00:50 69 127/73 02/29/24 00:49 123 H 100 02/29/24 00:44 97 H 100 02/29/24 00:39 71 100 02/29/24 00:35 66 129/70 02/29/24 00:34 71 99 02/29/24 00:29 132 H 100 02/29/24 00:24 150 H 100 02/29/24 00:19 139 H 100 02/29/24 00:14 79 100 02/29/24 00:09 115 H 100 02/29/24 00:04 113 H 100 02/28/24 23:59 73 100 02/28/24 23:54 132 H 100 02/28/24 23:51 113 H 140/65 02/28/24 23:49 100 H 100 02/28/24 23:44 105 H 100 02/28/24 23:39 85 100 02/28/24 23:36 64 117/62 02/28/24 23:34 57 L 100 02/28/24 23:29 65 100 02/28/24 23:24 66 100 08/16/24 23:21 60 115/61 02/28/24 23:19 70 100 02/28/24 23:14 65 100 02/28/24 23:09 69 100 02/28/24 23:06 63 105/58 L 02/28/24 23:04 59 L 100 02/28/24 23:00 18 02/28/24 23:00 37.1 C 18 02/28/24 22:59 61 100 02/28/24 22:54 59 L 100 02/28/24 22:51 61 106/53 L 02/28/24 22:49 65 100 02/28/24 22:44 60 100 02/28/24 22:39 69 100 02/28/24 22:37 71 133/60 02/28/24 22:34 66 100 02/28/24 22:29 70 100 02/28/24 22:24 96 H 99 02/28/24 22:20 60 119/59 L 02/28/24 22:19 61 100 02/28/24 22:14 121 H 100 02/28/24 22:09 66 98 02/28/24 22:05 62 108/56 L 02/28/24 22:04 68 98 02/28/24 21:59 131 H 96 02/28/24 21:54 97 H 98 02/28/24 21:51 93 H 120/71 02/28/24 21:49 84 99 02/28/24 21:44 111 H 100 02/28/24 21:39 76 99 02/28/24 21:35 78 130/76 02/28/24 21:34 75 99 02/28/24 21:29 72 100 02/28/24 21:24 78 100 02/28/24 21:20 75 140/83 02/28/24 21:19 83 99 02/28/24 21:14 75 99 02/28/24 21:09 81 99 02/28/24 21:05 88 144/91 H 02/28/24 21:04 85 100 02/28/24 21:00 18 02/28/24 21:00 37.0 C 18 02/28/24 20:59 76 99 02/28/24 20:54 70 100 02/28/24 20:50 64 125/67 02/28/24 20:49 70 99 02/28/24 20:44 64 100 02/28/24 20:39 69 100 02/28/24 20:35 63 120/57 L 02/28/24 20:34 63 100 02/28/24 20:29 76 100 02/28/24 20:24 73 100 02/28/24 20:20 68 134/76 02/28/24 20:19 66 99 02/28/24 20:14 66 98 02/28/24 20:09 61 99 02/28/24 20:07 68 119/69 02/28/24 20:04 66 98 02/28/24 19:59 63 99 02/28/24 19:54 69 99 02/28/24 19:50 69 118/70 02/28/24 19:49 71 99 02/28/24 19:44 77 98 02/28/24 19:39 80 99 02/28/24 19:36 67 116/68 02/28/24 19:34 64 99 02/28/24 19:30 36.8 C 02/28/24 19:29 70 98 02/28/24 19:24 68 99 02/28/24 19:22 65 121/70 02/28/24 19:19 62 99 02/28/24 19:14 69 99 02/28/24 19:09 73 99 02/28/24 19:05 63 123/72 02/28/24 19:04 70 99 02/28/24 18:59 71 99 02/28/24 18:54 71 99 02/28/24 18:51 66 122/72 02/28/24 18:49 69 99 02/28/24 18:44 70 98 02/28/24 18:39 60 99 02/28/24 18:35 81 128/75 02/28/24 18:34 63 99 02/28/24 18:30 20 02/28/24 18:30 20 02/28/24 18:29 64 98 02/28/24 18:24 72 98 02/28/24 18:20 67 114/63 02/28/24 18:19 71 97 02/28/24 18:14 68 99 02/28/24 18:09 63 99 02/28/24 18:07 68 112/66 02/28/24 18:04 64 99 02/28/24 18:00 20 02/28/24 18:00 20 02/28/24 17:59 61 97 02/28/24 17:54 62 98 02/28/24 17:52 63 116/71 02/28/24 17:49 77 98 02/28/24 17:45 18 02/28/24 17:44 80 99 02/28/24 17:39 66 99 02/28/24 17:35 73 111/71 02/28/24 17:34 72 99 02/28/24 17:33 64 111/71 02/28/24 17:31 65 111/70 02/28/24 17:30 20 02/28/24 17:29 99 02/28/24 17:29 62 02/28/24 17:29 61 121/69 02/28/24 17:27 69 113/67 02/28/24 17:25 61 113/69 02/28/24 17:24 60 99 02/28/24 17:23 76 118/71 02/28/24 17:21 70 117/75 02/28/24 17:19 99 02/28/24 17:19 75 02/28/24 17:19 60 113/66 02/28/24 17:17 78 117/69 02/28/24 17:16 18 02/28/24 17:15 65 116/67 02/28/24 17:14 65 99 02/28/24 17:13 59 L 111/65 02/28/24 17:11 62 119/68 02/28/24 17:09 99 02/28/24 17:09 54 L 02/28/24 17:09 55 L 113/66 02/28/24 17:07 57 L 122/68 02/28/24 17:05 60 119/65 02/28/24 17:04 58 L 100 02/28/24 17:03 57 L 120/66 02/28/24 17:01 60 115/66 02/28/24 17:00 18 02/28/24 16:59 100 02/28/24 16:59 68 02/28/24 16:59 67 111/66 02/28/24 16:57 66 109/63 02/28/24 16:55 58 L 116/65 02/28/24 16:54 68 100 02/28/24 16:53 60 120/66 02/28/24 16:51 62 112/62 02/28/24 16:49 100 02/28/24 16:49 73 02/28/24 16:49 65 117/62 02/28/24 16:47 63 124/68 02/28/24 16:45 18 02/28/24 16:45 72 117/63 02/28/24 16:44 67 100 02/28/24 16:43 55 L 125/65 02/28/24 16:41 63 116/68 02/28/24 16:39 68 118/69 100 02/28/24 16:37 73 118/71 02/28/24 16:35 61 123/71 02/28/24 16:34 68 100 02/28/24 16:33 64 121/71 02/28/24 16:30 20 02/28/24 16:30 73 114/64 02/28/24 16:29 87 100 02/28/24 16:24 87 100 02/28/24 16:19 95 H 100 02/28/24 16:14 76 100 02/28/24 16:09 77 100 02/28/24 16:04 88 100 02/28/24 15:59 100 H 100 02/28/24 15:54 92 H 100 02/28/24 15:50 98 H 86 L 02/28/24 15:49 94 H 100 02/28/24 15:44 100 02/28/24 15:44 77 02/28/24 15:44 69 115/78 02/28/24 15:39 92 H 100 02/28/24 15:34 99 02/28/24 15:34 79 02/28/24 15:34 77 93 02/28/24 15:29 100 02/28/24 15:29 85 02/28/24 15:29 74 154/73 H 02/28/24 15:24 83 98 02/28/24 15:19 85 99 02/28/24 15:14 80 100 02/28/24 15:13 75 150/72 H 02/28/24 15:09 89 99 02/28/24 14:58 90 150/79 H 02/28/24 14:58 37.0 C 18 Transfer of Care Handoff Completed per policy Notes Mental Status: alert / awake / arousable and participated in evaluation Patient Amnestic to Procedure: No Nausea / Vomiting: adequately controlled Pain: adequately controlled Airway Patency, RR, SpO2: stable & adequate BP & HR: stable & adequate Hydration State: stable & adequate Neuraxial Anesthesia: was administered and sensory block is resolving Anesthetic Complications: no major complications apparent and Pt Satisfied with anesthetic care
[2024-02-29] MEDS ORDERED: MAGNESIUM HYDROXIDE SUSP 30 ML UDC PO PRN (03:12)
[2024-02-29] MEDS ORDERED: CALCIUM CARBONATE 500 MG CHEWABLE TAB PO PRN (03:12)
[2024-02-29] MEDS ORDERED: BENZOCAINE 20% SPRY 85 APPLN/85 GM CAN EXT PRN (03:12)
[2024-02-29] MEDS ORDERED: HYDROCORTISONE ACETATE 25 MG SUPP PR PRN (03:12)
[2024-02-29] MEDS ORDERED: SENNA 8.6 MG TAB PO PRN (03:12)
[2024-02-29] MEDS: OXYTOCIN 30 UNITS/LR 1,003 ML IV SCH (03:15)
[2024-02-29] MEDS: AZITHROMYCIN 500 MG in DEXTROSE 5% 250 ML IV SCH (03:18)
[2024-02-29] MEDS: OXYTOCIN 20 UNITS/1002ML LR IV ONE (04:02)
[2024-02-29] MEDS: DIPHTHER/TETAN/PERTUS Vaccine (Tdap, Adol/Adult) 0.5mL IM ONE (04:03)
[2024-02-29] MEDS: CITRIC ACID/SODIUM CITRATE 15 ML UDC PO SCH (04:03)
[2024-02-29] MEDS: LACTATED RINGER'S 1,000 ML IV SCH (04:03)
[2024-02-29] MEDS: HYDROmorphone INJ 0.5 MG/0.5 ML SYR IV PRN (05:14)
[2024-02-29] MEDS: ACETAMINOPHEN 325 MG TAB PO SCH (05:15)
[2024-02-29] MEDS ORDERED: Nursing to Pharmacy Communication SCH (05:30)
[2024-02-29] MEDS: SIMETHICONE 80 MG CHEW PO SCH (10:06)
[2024-02-29] MEDS: PRENATAL VITAMIN 1 TAB PO SCH (10:06)
[2024-02-29] MEDS: FERROUS SULFATE 325 MG TAB PO SCH (10:06)
[2024-02-29] MEDS: DOCUSATE SODIUM 100 MG CAP PO SCH (10:06)
[2024-02-29] MEDS: IBUPROFEN 600 MG TAB PO SCH (10:09)
[2024-02-29] MEDS ORDERED: diphenhydrAMINE Capsule 25 MG CAP PO PRN (20:25)
[2024-02-29] MEDS ORDERED: oxyCODONE HCL IR 5 MG TAB (IMMEDIATE RELEASE) PO PRN (20:25)
[2024-02-29] MEDS ORDERED: HYDROmorphone INJ 0.5 MG/0.5 ML SYR IV PRN (20:25)
[2024-02-29] MEDS ORDERED: PROMETHAZINE 12.5 MG/50.5 ML BAG IV PRN (20:25)
[2024-03-01 06:42] LABS: Hematocrit (blood only) 22.2 % (37.0-47.0); Hemoglobin 7.4 g/dl (12.0-16.0); Mean Corpuscular Hemoglobin 29.2 pg (25.0-34.0); Mean Corpuscular Hgb Conc 33.3 g/dL (32.0-36.0); Mean Corpuscular Volume 87.7 fL (80.0-100.0); Platelet Count 169 K/uL (130-400); RDW Coefficient of Variation 13.6 % (11.5-14.5); RDW Standard Deviation 43.8 fL (36.4-46.3); Red Blood Count 2.53 M/uL (4.20-5.40); White Blood Count 21.87 K/ul (4.8-10.8)
[2024-03-01 06:52] LABS: Basophils # (auto) 0.03 K/uL (0.00-0.20); Basophils % (auto) 0.1 %; Echinocytes 1+; Eosinophils # (auto) 0.13 K/uL (0.00-0.50); Eosinophils % (auto) 0.6 %; Immature Granulocytes # (auto) 0.11 K/uL (0.01-0.20); Immature Granulocytes % (auto) 0.5 %; Lymphocytes # (auto) 1.82 K/uL (1.20-3.40); Lymphocytes % (auto) 8.3 %; Monocytes # (auto) 1.22 K/uL (0.11-0.59); Monocytes % (auto) 5.6 %; Neutrophils # (auto) 18.56 K/uL (1.40-6.50); Neutrophils % (auto) 84.9 %
--- NOTE | 2024-03-01 07:14 | Obstetrical Progress Note ---
Date of Service March 01, 2024 Assessment & Plan (1) Encounter for care and examination after delivery: Plan stable, routine care. rhpos, ri, gbs neg. hgb noted. Day #:: 2 Subjective Ambulation: ambulating normally Voiding: no voiding problems Diet Tolerance:: regular diet Lochia:: Small Feeding Type:: breast feeding no concerns pain mgmt is good. Constitutional: + as per Subjective / HPI Physical Exam Constitutional WD/WN, vitals as above Respiratory normal respiratory effort, lungs clear to auscultation Cardiovascular Rate/Rhythm: regular rate and regular rhythm Gastrointestinal (Abdomen) Inspection/Auscultation: abdomen normal to inspection Percussion/Palpation: abdomen soft Fundus firm 1-2cm down Musculoskeletal nt calves no edema Neurologic grossly normal Psychiatric A+Ox3, euthymic affect Results & Data Vital Signs (Past 12 Hours) Vital Signs Temp Pulse Pulse Resp BP Pulse Ox O2 Del Method 02/29/24 23:50 98.1 F 89 16 115/72 98 Room Air 02/29/24 20:15 18 98 02/29/24 19:55 18 98 02/29/24 19:55 98.1 F 99 H 18 123/68 98 Room Air
[2024-03-01] MEDS: bisacodyL 5 MG TABEC PO SCH (20:30)
[2024-03-02] MEDS ORDERED: bisacodyL 10 MG SUPP PR PRN (03:12)
--- NOTE | 2024-03-02 06:16 | Obstetrical Progress Note ---
Date of Service March 02, 2024 Assessment & Plan (1) Encounter for care and examination after delivery: Plan: POD#2: Stable, continue routine care, continue OOB and ambulation, progress diet as tolerated Rh+, gbs +, ri Hgb down to 7.4 from 11.8 Tentative plan for d/c on 03/03 Admission and Anticipated Discharge Date Admission Date: February 28, 2024 Supervising Physician Co-Signing Physician Notes Resident Physician Supervision Note: I was present with Dr. Castro during the history and exam. I discussed the case with the resident and agree with the findings and plan as documented in the note. Any exceptions or clarifications are listed here: stable doing well, eating, voiding, ambulating. pain well controlled. abd soft ff 2 down nt, incision c/d/i. ext nt calves. pod #2 s/p c/s doing well, routine care. breast/rhpos, ri. hgb noted. Documented By: Jenny Sprague MD, FACOG Subjective Anna is a 23 y/o female who is POD#2 following delivery at 38 and 6/7 weeks. Mild abdominal cramping, particularly on R side of scar, worse when standing up, well managed w Tylenol Is voiding Is tolerating meals Is ambulating on own Is passing gas and had BM. Currently breast feeding. Review of Systems 2 Constitutional: no fever, no chills and no sweats Respiratory: no dyspnea Cardiovascular: no chest pain, no palpitations and no calf pain Genitourinary: no dysuria Neurologic: no headache(s) Physical Exam 2 Physical Exam: General: Alert, oriented. No acute distress. Cardiac: Regular rate and rhythm, no murmurs, rubs, or gallops. Respiratory: Clear to auscultation bilaterally, no wheezes/rales/rhonchi. No increased work of breathing. Symmetrical chest rise. No respiratory distress. Abdomen: Soft, nontender, nondistended. Bowel sounds present. Uterus: Uterine fundus firm, palpable 1 cm below the umbilicus. Surgical scar clean and healing well. Lower extremities: No lower extremity edema or swelling. No deep calf pain. Results & Data Vital Signs (Past 12 Hours) Vital Signs Temp Pulse Pulse Resp BP Pulse Ox O2 Del Method 03/01/24 23:55 36.8 C 72 14 111/58 L 98 Room Air 03/01/24 19:15 36.8 C 90 90 16 113/55 L 97 Room Air Laboratory Results 03/01/24 05:52 02/28/24 15:54 Resident Activity Tracking Resident Involvement: Resident Care Provided Care Provided: Adult Hospital Medicine
[2024-03-02 06:39] LABS: Hemoglobin 7.2 g/dl (12.0-16.0)
[2024-03-02] MEDS: IBUPROFEN 600 MG TAB PO PRN (07:52)
[2024-03-02 09:34] VITALS: PULSE 101; RESP 16; TEMP 97.7; O2SAT 97
--- NOTE | 2024-03-02 10:51 | Communication Note ---
Date of Service: March 02, 2024 Notified by nursing that pt desires dc. Meeting all milestones, feels well. Rx for oxycodone sent, dc instructions reviewe
[2024-03-02 12:09] VITALS: BP 112/75
[2024-03-02] MEDS: ACETAMINOPHEN 325 MG TAB PO PRN (14:25)
--- NOTE | 2024-03-03 15:10 | Discharge Summary ---
Date of Service March 03, 2024 Admission HPI Per Admitting Provider 23 yrs G1 at 38w5d with GDM with GBS+ve status here for labor check. Contraction started at 9 am this morning Issues: 1. GBS +ve: needs PCN in Labor 2. GDM: Diet Controlled Menses Irregular: POG as per 8+5 WOG 38+2 WOG BG: A+ve Recent USG(02/18): EFW 85%( Both parent were Large babies at ) Initially planned for IOL after 39 weeks Came in labor; Contraction frequency: Vitals: BP 150/72 mmHg----- repeat BP 115/78 Talked about Epidural Discharge Data Consultations 02/29/24 01:56 Consult Anesthesiology Stat Procedures Performed Operation Date: 02/29/24 02:00 Actual Procedures p Section in LD with the of a live male child at 0217. - Ksenia Gr MD Hospital Course (1) Encounter for care and examination after delivery: POD#2: Stable, continue routine care, continue OOB and ambulation, progress diet as tolerated Rh+, gbs +, ri Hgb down to 7.4 from 11.8 Tentative plan for d/c on 03/03 Supervising Physician Co-Signing Physician Notes Resident Physician Supervision Note: I was present with Dr. Castro during the history and exam. I discussed the case with the resident and agree with the findings and plan as documented in the note. Any exceptions or clarifications are listed here: stable doing well, eating, voiding, ambulating. pain well controlled. abd soft ff 2 down nt, incision c/d/i. ext nt calves. pod #2 s/p c/s doing well, routine care. breast/rhpos, ri. hgb noted. Documented By: Jenny Sprague MD, FACOG Coding Level of Care Code None Diagnoses Encounter for care and examination after delivery Z39.2
== END 2024-03-02 15:50 | disposition home or self-care (01) | DRG 788 ==
LOC: OPB 14:44 → 4S1 14:45 → 4E1 02-29 08:02
DX: B95.1 Streptococcus, group B, as the cause of diseases classified elsewhere; O98.82 Other maternal infectious and parasitic diseases complicating childbirth; O66.9 Obstructed labor, unspecified; Z3A.38 38 weeks gestation of pregnancy; Z37.0 Single live birth; O24.420 Gestational diabetes mellitus in childbirth, diet controlled